=== PATIENT | female | born 1955 | race Caucasian/White ===

== ENCOUNTER → 2017-04-25 | Day surgery (SDC) | payer OTHER ==
[~2017-04-25] VITALS: Ht 160 cm; Wt 56.0 kg
[~2017-04-25] MED LIST: ALBU6.7H INH; BUPR150T8 PO; CARI350T PO; CIPR-231 PO; ESTR10TA VG; FLUC150T48 PO; FLUT9.9S NS; Ketamine 10 mg/mL 20 mL Inj ONE; Lactated Ringer's 1,000 ML IV ONE; Lactated Ringer's 1,000 ML IV SCH; METR55GE TOP; MetoCLOpramide 5 mg/mL 2 mL Inj IVPUSH PRN; OLP.1OP5 OD; Ondansetron 2 mg/mL 2 mL Inj IVPUSH PRN; PANT40TA3 PO; PRE625 PO; PRE625 VAGINAL; Propofol 10,000 mCg/mL 20 mL Inj ONE; SYN75 PO; TRAZ-115 PO; ZOV800 PO
--- NOTE | 2017-04-25 07:39 | PCM.HPANE ---
Patient Data Surgeon Admitting Provider: Attending Provider:Wilner Smith MD Primary Care Physician:Simone Champion MD Other Provider:[facility] Reason for Visit Altered Bowel Habits, Esophageal Dysphagia Ht/WT & BMI Body Mass Index Allergies Coded Allergies: Sulfa (Sulfonamide Antibiotics) (Verified Allergy, Intermediate, Rash, ) codeine (Verified Allergy, Intermediate, Rash, 04/25/17) salmeterol (Verified Allergy, Unknown, 04/25/17) Past Anesthesia History Anesthesia History: Denies:: Abnormal Airway, Difficult Intubation Diabetes History Hx Diabetes?: No MRSA MRSA: No Medications Hypertension Medication: No Home Meds Incl Beta Lisa: No Reported Medications Bupropion ER (Wellbutrin SR)150 Mg Tablet.er150 Mg PO BID Ref 0 04/23/17 Estradiol (Vagifem)10 Mcg Tuqeer47 Mcg VG 2xweek PRN for sexual activity 04/23/17 Trazodone 50 Mg Fycure86 Mg PO HS Ref 0 04/23/17 Levothyroxine (Synthroid)75 Mcg Fxyxxf12 Mcg PO DAILY Ref 0 04/23/17 Estrogens Conjugated (Premarin)0.625 Mg Tablet0.625 Mg VAGINAL 3xweek 30 Days Ref 0 04/23/17 Estrogens Conjugated (Premarin)0.625 Mg Tablet0.625 Mg PO DAILY 30 Days Ref 0 04/23/[address] 40 Mg Tablet.dr40 Mg PO DAILY Ref 0 04/23/17 Metronidazole (Metrogel)55 Gm Gel.w.pump1 Applic TOP BID #55 GM Ref 0 04/23/17 Fluticasone Propionate (Flonase Allergy Relief)50 Mcg/Actuation Gilman.susp1 Ml NS BID 04/23/17 Albuterol Sulfate (Proventil HFA Inhaler)6.7 Gm Hfa.aer.ad2 Puff INH Q4 PRN For Shortness of Breath #1 INHALER Ref 0 04/23/17 Acyclovir 800 Mg Slv550 Mg PO DIRECTED Ref 0 04/23/17 Discontinued Reported Medications Carisoprodol (Soma)350 Mg Ifilvd754 Mg PO BID PRN For Spasm 04/23/17 Olopatadine (Patanol)5 Ml Soln1 Ml OD BID 04/23/17 Fluconazole (Diflucan)150 Mg Fgiaad394 Mg PO ONCE #1 TABLET Ref 0 04/23/17 Ciprofloxacin (Cipro)500 Mg Fxrmmc289 Mg PO BID Ref 0 04/23/17 History History of ENT Problems?: No HEENT History: Denies:: Abnormal Airway Cataracts Difficult Intubation Dysphagia Glaucoma Hearing Problem Sinus Problem TMJ Denture Type: None Teeth Condition: Within Normal Limits Hx of Heart Problems?: No Cardiovascular History: Denies:: AICD Abdominal Aortic Aneurism Atrial Fibrillation Cardiac Surgery Chest Pain Congestive Heart Failure Coronary Artery Disease Edema Heart Murmur Hypertension Irregular Heartbeat Pacemaker Peripheral Vascular Rheumatic Fever Thrombophlebitis Valvular Heart Disease Hx of Respiratory Problem?: No Respiratory History: Denies:: Asthma COPD Chest Surgery Cough Dyspnea Emphysema Hemoptysis Oxygen Administration Pneumonia Pulmonary Embolism Tuberculosis Use of C-PAP Machine Use of Inhalers / NEBS Hx Neurologic Problems?: No Hx of GI Problems?: Yes (esophageal dysphagia, change in bowel habits) Hx of Problems?: No Skin History: Denies:: History Skin Disorders? Pressure Ulcers Hx Musculoskeletal Problems?: No Hx of Psycho/Social Problems?: Yes Psycho Social History: Positive for:: Anxiety Denies:: Bipolar Disorder Hx Depression Suicide Attempt Hx Surgeries?: Yes Stop/Bang Treated for Sleep Apnea?: No Do You Have a CPAP Machine?: No SUGAR Risk Assessment: Low Risk, <3 Yes Risk Assessment Category Category 1A: Patient has history of documented sleep apnea, and HAS NOT received any narcotic, sedative or anesthesia administration during this stay. Category 1B: Patient has history of documented sleep apnea, and HAS received any narcotic , sedative or anesthesia administration during this stay Category 2: Patient has SUSPECTED Obstructive Sleep Apnea, and HAS received any narcotic , sedative or anesthesia administration during this stay. Category 3: Patient has SUSPECTED Obstructive Sleep Apnea and HAS NOT received narcotic, sedative or anesthesia administration during this stay. Category 4: Outpatient in Procedural Areas with known sleep apnea or who screen positive for High Risk via the STOP/BANG questionnaire. Exam Exam General Appearance: Alert, Oriented X3, Cooperative, No Acute Distress HEENT/AIRWAY: MP 2 Lungs: Clear to Auscultation, Normal Air Movement Heart: Exam Unremarkable, Regular Rate/Rhythm, No Murmurs/Rubs/Gallops Plan Impression Patient chart reviewed, patient interviewed and anesthestic plan with risks, benefits, and alternatives discussed, and informed consent obtained. NPO per Anesth. Guidelines: Yes ASA Physical Status: ASA2 Mod Systemic Disease Anesthetic Plan: MAC Bene/Risks/Altern/Consents: Yes HP Complete Prior to Induction: Yes Sebastien Berry MD Apr 25, 2017 07:39
[2017-04-25 09:23] VITALS: BP 110/73; PULSE 75; RESP 16; O2SAT 98
--- NOTE | 2017-04-25 10:37 | PCM.ENDEGD ---
EGD Date of Service: Apr 25, 2017 Physician Wilner Smith MD Pre Procedure Diagnosis: Dysphagia Post Procedure Dx & Findings: Fundic polyps Procedure Esophagogastroduodenoscopy PROCEDURE IN DETAIL: Sedation by anesthesiology After proper sedation, Olympus video endoscope was inserted into patient's mouth and esophagus was successfully intubated. Scope introduced esophagus. Esophagus showed normal shiny whitish mucosa consistent with squamous cell component. Z line was intact at 40 cm from the incisors. Scope further advanced to the stomach. Stomach showed normal shiny mucosa with normal appearing rugae folds without any ulcer mass erosion. Cardia fundus body antrum pylorus were all visualized. Retroflexion was done. Multiple fundic polyps are noted. Largest was about 1-1/2 and the other one was about 1 cm. There were several smaller ones. Sampling biopsies were obtained especially on the largest of the fundic polyps. Stomach was easily inflated and deflatable using air. Scope further advanced to the distal duodenum. Duodenum revealed normal villous structures with normal appearing folds without any mass ulcer erosion. Impression Fundic polyps Recommendation Colonoscopies for altered bowel habits. Presedation Assessment Risks and Benefits Informed consent was obtained from the patient after all risks and benefits including but not limited to drug reaction, infection, pain, bleeding, perforation, as well as alternatives were discussed. Patient monitoring Continuous pulse oximetry, cardiac monitoring, blood pressure monitoring, IV access, and oxygen at 2L per nasal cannula. Complications There were no periprocedural complications identified. Post Procedure Plan Post Procedure Recommendations 1. Restrict activities today. 2. Resume normal activities in the morning. 3. Resume medications. 4. GERD behavioral modification: - Avoid fatty, acidic, spicy, large meals - Do not lie down after meals - Do not eat or drink anything for at least 2 1/2 hours before going to bed at night - Discontinue tobacco and alcohol - Decrease or avoid caffeine - Avoid chocolate and mints - Decrease weight - Avoid aspirin and non steroidal anti-inflammatory agents (NSAID) such as Aleve, Advil, Mobic, Naproxen, Ibuprofen, etc 5. Add proton pump inhibitor. Take 30 minutes before 1st meal of the day. 6. Patient informed of normal post procedure side effects as bloating, drowsiness, blood streaking in the stool 7. If gastric biopsy reveal H.pylori, continue with appropriate treatment 8. If small bowel biopsy reveals celiac, continue with appropriate treatment 9. Please don't hesitate to call me with any questions Wilner Smith MD Apr 25, 2017 10:37
--- NOTE | 2017-04-25 10:57 | PCM.ENDCOL ---
Colonoscopy Date of Service: Apr 25, 2017 Physician Wilner Smith MD Pre Procedure Diagnosis: Altered bowel habits Post Procedure Dx & Findings: Colon polyp and hemorrhoids Procedure Colonoscopy PROCEDURE IN DETAIL: Sedation done by anesthesiology Prep adequate Withdrawal time 9 minutes After unremarkable rectal examination the Olympus video colonoscope was inserted patient's anal canal and was advanced to cecum. Landmarks were identified including the ileocecal valve and appendiceal orifice. Scope was withdrawn systematically. Visualized colonic mucosa showed healthy shiny mucosa with normal healthy-appearing vasculature. In the ascending colon there was a 1 mm polyp which was removed complete cecal forcep. In the rectum retroflexion was done which showed hemorrhoids. Anal canal was inspected carefully on the way out and hemorrhoids noted. Impression Polyp 1 status post complete removal. Hemorrhoids Recommendation Repeat colonoscopy 5 years Presedation Assessment Risks and Benefits Informed consent was obtained from the patient after all risks and benefits including but not limited to drug reaction, infection, pain, bleeding, perforation, as well as alternatives were discussed. Patient monitoring Continuous pulse oximetry, cardiac monitoring, blood pressure monitoring, IV access, and oxygen at 2L per nasal cannula. Complications There were no periprocedural complications identified. Post Procedure Plan Post Procedure Recommendations 1. Restrict activities today. 2. Resume normal activities in the morning. 3. Resume medications. 4. Patient informed of normal post procedure side effects as bloating, drowsiness, blood streaking in the stool. 5. average risk CRCS. If colon polyps come back as: -Hyperplastic- can repeat colonoscopy in 10 years -Tubular adenoma- repeat colonoscopy in 5 years -Tubulovillous/villous adenoma- repeat colonoscopy in 3 years -If any dysplasia- return to clinic as soon as possible 6. Please don't hesitate to call me with any questions. Wilner Smith MD Apr 25, 2017 10:57
[2017-04-25 10:58] VITALS: BP 89/54; PULSE 80; RESP 16; O2SAT 98
[2017-04-25 11:08] VITALS: BP 104/61; PULSE 77; RESP 16; O2SAT 99
[2017-04-25 11:15] VITALS: BP 116/68; PULSE 68; RESP 16; O2SAT 100
--- NOTE | 2017-04-26 09:12 | PCM.ANEP1 ---
Post Anesthesia PACU Phase 1 Assessment Anesthetic Administered: MAC Level of Alertness: Awake, talking LOPEZ's with Equal Strength: Yes Pain: No Nausea or Vomiting: No CV Function & Hydration Stable: Yes Airway Device: none Lungs: Clear to Auscultation, Normal Air Movement Dermatome Level: Full Sensation PACU Phase 2 Assessment Complications: No Follow up Care: No Patient Instructions Provided: N/A Sebastien Berry MD Apr 26, 2017 09:12
--- NOTE | 2017-04-29 16:45 | PATH ---
SURGICAL PATHOLOGY Attending Physician:Wilner Smith M.D. CASE STATUS: Signed Out PATIENT NAME: STEPHANIE JAIMSE PID: [id number] : 1955 DATE COLLECTED:04/25/2017 21:26 SPECIMEN: 1: Stomach, Polyp, Biopsy 2: Colon, Polyp CLINICAL HISTORY: 1). FUNDAL POLYP X1 2). ASCENDING POLYP X1 FINAL DIAGNOSIS: 1. Gastric Polyp, Biopsy: Fundic gland polyp. Helicobacter organisms not identified. Negative for intestinal metaplasia, dysplasia, or malignancy. 2. Ascending Colon Polyp, Biopsy: Tubular adenoma. ICD10: R13.0 D12.2 GROSS DESCRIPTION: Received two formalin-filled containers, each labeled with the patient' s name. 1. Received in formalin, labeled with the patient' s name and "fundal polyp", are two fragments of prieto, soft tissue ranging from 0.1 x 0.1 x 0.1 cm to 0.2 x 0.1 x 0.1 cm. The fragments are totally submitted in cassette 1A. 2. Received in formalin, labeled with the patient' s name and "ascending polyp", is one fragment of prieto, soft tissue measuring 0.1 x 0.1 x 0.1 cm. The fragment is totally submitted in cassette 2A. [id number]) ICD-9 CODES: CPT CODES: 1: 78217 2: 03884 Electronically Signed Out Herve Buitrago MD, Ph.D. [facility] Pathology [facility], [place] [address] Technical component performed at [facility], [facility] [address], [place], [address]
== END | disposition home or self-care (01) ==
LOC: END 01:23
PROVIDERS: ATTEND Internal Medicine
DX: R19.4 Change in bowel habit (principal); D12.2 Benign neoplasm of ascending colon; K64.8 Other hemorrhoids; K31.7 Polyp of stomach and duodenum; K21.9 Gastro-esophageal reflux disease without esophagitis; J44.9 Chronic obstructive pulmonary disease, unspecified
CPT/HCPCS: 43239; 45380; J2704; J7120